=== PATIENT | male | born 1960 | race Caucasian/White ===

== ENCOUNTER 2018-07-17 16:43 | Outpatient (REF) | payer OTHER, SELFPAY ==
[2018-07-17 19:26] LABS: COMMENT (LAB VIEW ONLY) 113.01 mg/dL; Microalb ug/mg Crea 3.3 ug/mg Cr
== END 2018-07-17 17:03 ==
LOC: NCHCN 16:43
PROVIDERS: PCP Internal Medicine; Visit Provider Internal Medicine
DX: E11.9 Type 2 diabetes mellitus without complications (principal)
CPT/HCPCS: 82043; 82570

== ENCOUNTER 2019-08-02 16:40 | Outpatient (REF) | payer OTHER, SELFPAY ==
[2019-08-02 19:36] LABS: COMMENT (LAB VIEW ONLY) 125.47 mg/dL; Microalb ug/mg Crea 1.8 ug/mg Cr
== END 2019-08-02 17:00 ==
LOC: NCHCN 16:40
PROVIDERS: PCP Internal Medicine; Visit Provider Internal Medicine
DX: E11.9 Type 2 diabetes mellitus without complications (principal)
CPT/HCPCS: 82043; 82570

== ENCOUNTER 2020-03-06 12:44 | Outpatient (REF) | payer OTHER, SELFPAY ==
[2020-03-06 19:42] LABS: ALT 30 U/L (16-63); Anion Gap 7.9 mmol/L (3-11); BUN 13 mg/dL (7-18); CO2 28.1 mmol/L (21.0-32.0); CREATININE 0.86 mg/dL (0.70-1.30); Calcium 8.9 mg/dL (8.5-10.1); Chloride 103 mmol/L (98-107); Glucose 97 mg/dL (74-106); LDL CHOLESTEROL 86 mg/dL (<100); Potassium 4.1 mmol/L (3.5-5.1); Sodium 139 mmol/L (136-145)
== END 2020-03-06 13:04 ==
LOC: NCHCN 12:44
PROVIDERS: PCP Internal Medicine; Visit Provider Internal Medicine
DX: E11.9 Type 2 diabetes mellitus without complications (principal); I10 Essential (primary) hypertension
CPT/HCPCS: 80048; 83721; 84460

== ENCOUNTER 2020-12-04 15:14 | Outpatient (REF) | payer OTHER, SELFPAY ==
[2020-12-04 16:14] LABS: COMMENT (LAB VIEW ONLY) 15.78 mg/dL; Microalb ug/mg Crea 10.8 ug/mg Cr
== END 2020-12-04 15:15 | disposition home or self-care (01) ==
LOC: NCHCN 15:14
PROVIDERS: PCP Internal Medicine; Visit Provider Internal Medicine
DX: E11.9 Type 2 diabetes mellitus without complications (principal)
CPT/HCPCS: 82043; 82570

== ENCOUNTER 2021-06-01 21:38 | Outpatient (REF) | payer OTHER, SELFPAY ==
[2021-06-01 20:36] LABS: ALT 36 U/L (16-63); AST 29 U/L (15-37); Albumin 4.1 g/dL (3.4-5.0); Alkaline Phosphatase 96 U/L (46-116); Anion Gap 7.2 mmol/L (3-11); BUN 15 mg/dL (7-18); Bilirubin, Total 1.1 mg/dL (0.2-1.0); CO2 30.8 mmol/L (21.0-32.0); CREATININE 0.9 mg/dL (0.70-1.30); Calcium 9.2 mg/dL (8.5-10.1); Chloride 104 mmol/L (98-107); Glucose 95 mg/dL (74-106); Potassium 4.2 mmol/L (3.5-5.1); Sodium 142 mmol/L (136-145); Total Protein 7.3 g/dL (6.4-8.2)
== END 2021-06-01 21:39 | disposition home or self-care (01) ==
LOC: NCHCN 21:38
PROVIDERS: PCP Internal Medicine; Visit Provider Internal Medicine
DX: E11.9 Type 2 diabetes mellitus without complications (principal); K76.0 Fatty (change of) liver, not elsewhere classified; Z00.00 Encounter for general adult medical examination without abnormal findings
CPT/HCPCS: 80053

== ENCOUNTER 2022-06-03 15:21 | Outpatient (REF) | payer OTHER, SELFPAY ==
[2022-06-03 19:02] LABS: Anion Gap 7.4 mmol/L (3-11); BUN 15 mg/dL (7-18); CO2 29.6 mmol/L (21.0-32.0); CREATININE 0.8 mg/dL (0.70-1.30); Calcium 9.1 mg/dL (8.5-10.1); Calculated LDL 88 mg/dL (<100); Chloride 102 mmol/L (98-107); Cholesterol 156 mg/dL (<200); Estimated GFR 101.32 (mL/min/1.73m2); Glucose 116 mg/dL (74-106); HDL Cholesterol 42 mg/dL (40-60); Sodium 139 mmol/L (136-145); Triglyceride 130 mg/dL (<150)
[2022-06-04 22:04] LABS: PSA, Screening 2.8 ng/mL (<=4.5)
== END 2022-06-03 15:22 | disposition home or self-care (01) ==
LOC: NCHCN 15:21
PROVIDERS: PCP Internal Medicine; Visit Provider Internal Medicine
DX: E11.9 Type 2 diabetes mellitus without complications (principal); I10 Essential (primary) hypertension; Z00.00 Encounter for general adult medical examination without abnormal findings
CPT/HCPCS: 80048; 80061; 84153; 82043; 82570

== ENCOUNTER 2023-06-01 21:13 | Outpatient (REF) | payer OTHER, SELFPAY ==
[2023-06-01 20:32] LABS: ALT 34 U/L (16-63); AST 22 U/L (15-37); Alkaline Phosphatase 105 U/L (46-116); Anion Gap 8.3 mmol/L (3-11); BUN 11 mg/dL (7-18); Bilirubin, Total 1.3 mg/dL (0.2-1.0); CO2 28.7 mmol/L (21.0-32.0); CREATININE 0.8 mg/dL (0.70-1.30); Chloride 101 mmol/L (98-107); Estimated GFR 100.69 (mL/min/1.73m2); Glucose 124 mg/dL (74-106); LDL CHOLESTEROL 79 mg/dL (<100); Potassium 4.1 mmol/L (3.5-5.1); Sodium 138 mmol/L (136-145); Total Protein 7.3 g/dL (6.4-8.2)
== END 2023-06-01 21:14 | disposition home or self-care (01) ==
LOC: NCHCN 21:13
PROVIDERS: PCP Internal Medicine; Visit Provider Internal Medicine
DX: I10 Essential (primary) hypertension (principal); E78.2 Mixed hyperlipidemia; E11.9 Type 2 diabetes mellitus without complications; K76.0 Fatty (change of) liver, not elsewhere classified
CPT/HCPCS: 80053; 83721

== ENCOUNTER 2024-06-01 19:20 | Outpatient (REF) | payer OTHER, SELFPAY ==
[2024-06-01 20:16] LABS: ALT 35 U/L (16-63); AST 22 U/L (15-37); Albumin 3.9 g/dL (3.4-5.0); Alkaline Phosphatase 113 U/L (46-116); Anion Gap 5.7 mmol/L (3-11); BUN 15 mg/dL (7-18); Bilirubin, Total 1.32 mg/dL (0.2-1.0); CO2 31.3 mmol/L (21.0-32.0); CREATININE 0.9 mg/dL (0.70-1.30); Calcium 9.2 mg/dL (8.5-10.1); Calculated LDL 69 mg/dL (<100); Chloride 104 mmol/L (98-107); Cholesterol 138 mg/dL (<200); Estimated GFR 96.57 (mL/min/1.73m2); Glucose 115 mg/dL (74-106); HDL Cholesterol 43 mg/dL (40-60); Sodium 141 mmol/L (136-145); Triglyceride 132 mg/dL (<150)
== END 2024-06-01 19:21 | disposition home or self-care (01) ==
LOC: NCHCN 19:20
PROVIDERS: PCP Internal Medicine; Visit Provider Internal Medicine
DX: I10 Essential (primary) hypertension (principal)
CPT/HCPCS: 80053; 80061

== ENCOUNTER 2025-06-03 14:15 | Outpatient (CLI) | payer OTHER, SELFPAY ==
--- NOTE | 2025-06-03 14:30 | DI.RAD_ITS ---
Exam(s) XR KNEE RT 4V AP,LAT,JUAN,PAT EXAM: XR KNEE RT 4V AP,LAT,JUAN,PAT CLINICAL HISTORY: eval R knee pain. TECHNIQUE: 2D digital imaging was performed of the right knee. Five views obtained. Merchant, AP, lateral and PA tunnel views were obtained. COMPARISON: CR XR KNEE LT 4V AP,LAT,JUAN,PAT from 06/03/2025 FINDINGS: BONES: No acute fracture is present. No bony destructive lesion is seen. JOINTS: There are mild degenerative changes seen in the right knee characterized by joint space narrowing and osteophytes. The findings are most marked in the medial femoral tibial joint. No joint effusion is seen. SOFT TISSUE: Normal. IMPRESSION: Mild degenerative changes seen in the right knee. DATA REPOSITORY: RADIATION DOSE DELIVERED:
--- NOTE | 2025-06-03 14:30 | DI.RAD_ITS ---
Exam(s) XR KNEE LT 4V AP,LAT,JUAN,PAT EXAM: XR KNEE LT 4V AP,LAT,JUAN,PAT CLINICAL HISTORY: eval L knee pain. TECHNIQUE: 2D digital imaging was performed of the left knee. Images were obtained. Merchant,AP, lateral and PA tunnel views were obtained. COMPARISON: CR CHEST 2 VIEWS PA,LAT from 05/02/2015 FINDINGS: BONES: No acute fracture is present. No bony destructive lesion is seen. JOINTS: There is marked narrowing in the medial femoral tibial joint. There osteophytes seen particularly the medial femoral tibial joint in the patellofemoral joint. A joint effusion. No loose body. SOFT TISSUE: Normal. IMPRESSION: Marked osteoarthritis of the left knee. DATA REPOSITORY: RADIATION DOSE DELIVERED:
== END 2025-06-03 14:16 | disposition home or self-care (01) ==
LOC: DIORS 06-04 08:57
PROVIDERS: PCP Internal Medicine; Visit Provider Student in an Organized Health Care Education/Training Program
DX: M25.562 Pain in left knee (principal); M25.561 Pain in right knee; M17.11 Unilateral primary osteoarthritis, right knee; M17.12 Unilateral primary osteoarthritis, left knee
CPT/HCPCS: 73564